=== PATIENT | male | born 1955 | race Caucasian/White ===

== ENCOUNTER → 2019-06-27 14:28 | Outpatient (CLI) | payer OTHER, SELFPAY ==
[2019-06-27 16:50] LABS: Alanine Aminotransferase 72 IU/L (<50); Albumin 4.2 g/dL (3.5-5.0); Albumin Globulin Ratio 1.2 (1.0-2.8); Alkaline Phosphatase 79 U/L (38-126); Aspartate Aminotransferase 93 IU/L (17-59); BUN Creatinine Ratio 18.6 (6-22); Bilirubin Total 0.5 mg/dL (0.2-1.3); Blood Urea Nitrogen 13 mg/dL (9-20); Calcium 9.4 mg/dL (8.4-10.2); Carbon Dioxide 26 mmol/L (22-32); Chloride 102 mmol/L (98-107); Cholesterol 183 mg/dL (140-199); Estimated Glomerular Filt Rate > 60.0 mL/min (>60); Globulin 3.4 g/dL (1.7-4.1); Glucose 104 mg/dL (80-110); HDL Cholesterol 44 mg/dL (40-60); HEMOLYSIS < 15 (0-50); LDL Cholesterol Calculated 110 mg/dL (<100); Potassium 4.4 mmol/L (3.4-5.1); Sodium 137 mmol/L (137-145); Total Protein 7.6 g/dL (6.3-8.2); Triglycerides 145 mg/dL (35-150); Uric Acid 5.6 mg/dL (3.5-8.5)
[2019-06-27 17:21] LABS: Prostate Specific Antigen Scrn 0.353 ng/mL (0.1-4.0)
== END ==
PROVIDERS: Family Provider Internal Medicine; PCP Internal Medicine; Referring Provider Internal Medicine; Visit Provider Internal Medicine
DX: Z12.5 Encounter for screening for malignant neoplasm of prostate (principal); E78.5 Hyperlipidemia, unspecified; K57.90 Diverticulosis of intestine, part unspecified, without perforation or abscess without bleeding; Z13.1 Encounter for screening for diabetes mellitus; Z13.6 Encounter for screening for cardiovascular disorders; Z87.39 Personal history of other diseases of the musculoskeletal system and connective tissue
CPT/HCPCS: 36415; 80053; 80061; 84550; G0103

== ENCOUNTER → 2019-07-03 12:08 | Outpatient (CLI) | payer OTHER, MEDICAID, SELFPAY ==
--- NOTE | 2019-07-03 12:09 | DI.US.S_ITS ---
PROCEDURE: US ABDOMEN COMPLETE INDICATIONS: TRANSAMINITIS, CHRONIC HEPATITIS TECHNIQUE: Real-time scanning was performed of the abdominal and retroperitoneal organs, with image documentation. COMPARISON: None. FINDINGS: Liver: Liver is normal in size and homogeneous in echotexture, diffusely hyperechoic to the degree that accurate assessment for interval biliary distention or masses are limited. Gallbladder: The gallbladder appears normal. Biliary ducts: Not well-seen due to overlying bowel gas and the prominently hyperechoic overlying liver parenchyma. Pancreas: Visualized portions of the pancreas are sonographically normal. Spleen: Spleen is normal in size and homogeneous in echotexture. Kidneys: Kidneys are normal in size and echotexture. Right kidney measures 11.2 cm long; left kidney measures 11.7 cm long. No hydronephrosis or nephrolithiasis. No solid masses. 1.8 cm simple appearing right renal cortical cyst incidentally noted. Aorta: Visualized aorta is normal in caliber at less than 3 cm. Iliacs: Proximal common iliac arteries are normal in caliber at less than 2.5 cm. IVC: Intrahepatic inferior vena cava is patent. Miscellaneous: No free abdominal fluid. IMPRESSION: Prominently hyperechoic liver echotexture reduces quality of visualization behind and within the liver itself. Bile ducts and pancreas as result were not well-visualized. Ultrasound imaging is ineffective for accurate detection of early hepatic neoplasm and followup by CT scanning may be warranted if clinically indicated. Dictated by: Aime Taveras M.D. on 07/03/2019 at 13:52 Approved by: Aime Taveras M.D. on 07/03/2019 at 13:54
== END ==
PROVIDERS: Family Provider Internal Medicine; PCP Internal Medicine; Referring Provider Internal Medicine; Visit Provider Internal Medicine
DX: R74.0 Nonspecific elevation of levels of transaminase and lactic acid dehydrogenase [LDH] (principal); K73.9 Chronic hepatitis, unspecified; N28.1 Cyst of kidney, acquired
CPT/HCPCS: 76700

== ENCOUNTER → 2019-07-07 12:19 | Outpatient (CLI) | payer OTHER, MEDICAID, SELFPAY ==
[2019-07-07 13:22] LABS: HEMOLYSIS < 15 (0-50); Iron 119 ug/dL (49-181)
[2019-07-07 13:26] LABS: Alanine Aminotransferase 77 IU/L (<50); Albumin 4.1 g/dL (3.5-5.0); Albumin Globulin Ratio 1.2 (1.0-2.8); Alkaline Phosphatase 68 U/L (38-126); Aspartate Aminotransferase 93 IU/L (17-59); Bilirubin Total 0.5 mg/dL (0.2-1.3); Bilirubin Unconjugated 0.4 mg/dL (0.0-1.1); Globulin 3.3 g/dL (1.7-4.1); HEMOLYSIS < 15 (0-50); Total Protein 7.4 g/dL (6.3-8.2)
[2019-07-07 13:32] LABS: Percent Iron Saturation 31 % (20-50); Total Iron Binding Capacity 389 ug/dL (261-462); Transferrin 301 mg/dL (206-381)
[2019-07-07 13:53] LABS: TSH w/ Reflex to FT4 2.14 uIU/mL (0.47-4.68)
[2019-07-07 14:04] LABS: Hepatitis B Surface Antigen NEGATIVE s/c (NEGATIVE)
[2019-07-07 14:11] LABS: Hep C Virus Ab w/Reflex Quant NEGATIVE s/c (NEGATIVE)
[2019-07-08 05:37] LABS: Ceruloplasmin 25.1 mg/dL (16.0-31.0)
[2019-07-11 10:36] LABS: ANA Screen, IFA Negative (.)
[2019-07-12 09:09] LABS: Smooth Muscle Antibody 21 Units (0-19)
[2019-07-13 03:36] LABS: Deamidated Gliadin IgA 25 units (0-19); Deamidated Gliadin IgG 5 units (0-19); IGA 499 mg/dL (61-437); t-Transglutaminase IgA <2 U/mL (0-3)
== END ==
PROVIDERS: Family Provider Internal Medicine; PCP Internal Medicine; Referring Provider Internal Medicine; Visit Provider Internal Medicine
DX: K73.9 Chronic hepatitis, unspecified (principal); R74.0 Nonspecific elevation of levels of transaminase and lactic acid dehydrogenase [LDH]
CPT/HCPCS: 36415; 80076; 82390; 82784; 83516; 83540; 83550; 84443; 86038; 86803; 87340

== ENCOUNTER → 2021-12-18 11:59 | Outpatient (CLI) | payer MEDICARE, OTHER, SELFPAY ==
[2021-12-18 12:53] LABS: HEMOLYSIS < 15 (0-50)
[2021-12-18 13:01] LABS: Alanine Aminotransferase 54 IU/L (<50); Albumin 4.1 g/dL (3.5-5.0); Alkaline Phosphatase 82 U/L (38-126); Aspartate Aminotransferase 49 IU/L (17-59); BUN Creatinine Ratio 19.2 (6-22); Bilirubin Total 0.7 mg/dL (0.2-1.3); Blood Urea Nitrogen 14 mg/dL (9-20); Calcium 8.7 mg/dL (8.4-10.2); Carbon Dioxide 27 mmol/L (22-32); Chloride 99 mmol/L (98-107); Cholesterol 209 mg/dL (140-199); Estimated Glomerular Filt Rate > 60 mL/min (>60); Globulin 4.1 g/dL (1.7-4.1); Glucose 145 mg/dL (80-110); HDL Cholesterol 36 mg/dL (40-60); LDL Cholesterol Calculated 142 mg/dL (<100); Potassium 4.3 mmol/L (3.4-5.1); Sodium 137 mmol/L (137-145); Total Protein 8.2 g/dL (6.3-8.2); Triglycerides 154 mg/dL (35-150); Uric Acid 6.6 mg/dL (3.5-8.5)
== END ==
PROVIDERS: Family Provider Internal Medicine; PCP Internal Medicine; Referring Provider Internal Medicine; Visit Provider Internal Medicine
DX: E78.5 Hyperlipidemia, unspecified (principal); Z12.5 Encounter for screening for malignant neoplasm of prostate; K76.0 Fatty (change of) liver, not elsewhere classified; Z87.39 Personal history of other diseases of the musculoskeletal system and connective tissue
CPT/HCPCS: 36415; 80053; 80061; 84550; G0103

== ENCOUNTER 2022-06-23 07:41 | Day surgery (SDC) | payer MEDICARE, OTHER, MEDICAID, SELFPAY ==
[2022-06-23] MEDS: LACTATED RINGERS 1,000 ML 200 ML IV (07:57)
[2022-06-23 08:08] VITALS: BP 156/85; PULSE 79; RESP 20; TEMP 36.3; O2SAT 95; BMI 39.9
--- NOTE | 2022-06-23 09:50 | PM.HP.1 ---
History of Present Illness History of Present Illness Date Patient Seen: 06/23/22 Time Patient Seen: 09:50 Chief complaint: Colonoscopy Narrative: The patient presents for colorectal screening. Personal history of colonic polyps. Mother had colon cancer.. On further history denies any recent gastrointestinal symptoms. No nausea, vomiting, abdominal pain, loss of appetite, unexplained weight loss, change in bowel habits, or blood per rectum. [facility] Medical History (Updated 01/30/22 @ 11:28 by Davon Coles MD) Colonic adenoma (2011) Diverticular disease (2009) Fatty liver Gout (2005) History of adenomatous polyp of colon History of gout Hyperlipidemia (05/15/11) Impaired glucose tolerance Morbid obesity Plantar warts (1984) Psoriasis (1964) Recurrent sinusitis (2011) Sleep apnea (1994) Surgical History Status post colonoscopy (2011) Family History Brother Cancer Leukemia Father Stroke CAD (coronary artery disease) Grandfather Cancer Grandmother Cancer Mother Cervical cancer Cancer Sister Heart failure Epilepsy Social History marital status: unmarried,single number of children: 0 household members: none lives independently: Yes caregiver/support person: No housing: house pets and animals: Yes education level: college ([employer] occupational status: other (Retired.) Previous occupational history: [employer] in [employer]. Was bought out name changed. leisure activities: exercise (Walking, Hiking.) and other (Boating) Smoking Status: Former smoker Tobacco: How many years used: 18 Smokeless tobacco user: other (Cigarettes) quit status: quit date established (1992) second hand exposure: No alcohol intake: current substance use type: does not use Meds Home Medications and Allergies Home Medications Medication Instructions Recorded Confirmed Type allopurinol 300 mg tablet 300 mg PO QDAY PRN Pain (Scale 06/23/22 06/23/22 History Score 4-6) Allergies Allergy/AdvReac Type Severity Reaction Status Date / Time codeine [CODEINE] Allergy Mild Verified 06/23/22 08:24 Exam Vital Signs (past 8 hours): - 06/23/22 08:08 Temperature 97.3 F L Pulse Rate 79 Respiratory Rate 20 Blood Pressure 156/85 H Pulse Oximetry 95 Oxygen Delivery Method Room Air Oxygen Delivery Method Room Air Narrative Exam Narrative: General adult man alert oriented no acute distress Assessment & Plan Assessment & Plan narrative: The patient requires colorectal screening and colonoscopy is recommended. Technical details were discussed. Risks, benefits, alternatives explained. Risks including but not limited to myocardial infarction, aspiration, bleeding, pain, missed lesion, incomplete examination, need for further radiographic studies, colonic perforation, and need for major abdominal surgery were discussed. All questions were answered to their satisfaction, and they are in agreement with this plan.
[2022-06-23 10:31] VITALS: BP 141/81; PULSE 78; RESP 19; TEMP 36.9; O2SAT 94
[2022-06-23 10:36] VITALS: BP 148/74; PULSE 75; RESP 21; O2SAT 94
--- NOTE | 2022-06-23 10:36 | PM.OP.COLON ---
Operative Date/Time/Diagnoses Date of procedure: 06/23/22 Time of procedure: 10:36 Pre-op diagnosis: FamHx of colon cancer Post-op diagnosis: same Procedure & Clinicians Study performed: Colonoscopy Same procedure as scheduled: Yes Indications: Family history of colon cancer, colorectal screening Surgeon: Von Moffett Procedure Notes Procedure in detail: The history and physical was performed/updated and the patient is ASA class is 2. The procedure was discussed in detail with the patient. Potential risks complications including infection, bleeding, missed diagnosis, perforation, need for surgery, and were explained. Their questions were answered and informed consent was obtained. Patient was brought to the procedure room and placed standard monitoring equipment. The patient's vital signs were monitored continuously throughout the entire procedure. Prior to starting time-out was performed. The patient was placed in the left lateral recumbent position. Procedural sedation was administered by anesthesia. Examination began with a thorough inspection of the perianal area there was no evidence of fissures, fistulae, external hemorrhoids or cutaneous malignancy. The colonoscopy scope was then placed into the anal canal and was advanced to the cecum, which was identified by the ileocecal valve, the appendiceal orifice and the confluence of the taenia. The scope was then slowly withdrawn examining colon thoroughly in all directions, irrigating it of any residual stool. No masses polyps or inflammation. Significant diverticulosis within the sigmoid and descending colon. The patient tolerated the procedure well. They will be discharged once criteria are met. The prep was of fair quality. The withdrawl time was 6 minutes. Specimen(s): none sent Impression: Normal colonoscopy Post-procedure Recommendations: Colonoscopy in 5 years and High fiber diet Disposition: same day surgery
[2022-06-23 10:44] VITALS: BP 136/67; PULSE 74; RESP 19; O2SAT 94
== END 2022-06-23 11:15 | disposition home or self-care (01) ==
PROVIDERS: Family Provider Internal Medicine; PCP Internal Medicine; Referring Provider Surgery; Visit Provider Surgery
PROC: 0DJD8ZZ Inspection of Lower Intestinal Tract, Via Natural or Artificial Opening Endoscopic (ICD-10-PCS; CPT 45378; principal; 2022-06-23 08:45)
DX: Z12.11 Encounter for screening for malignant neoplasm of colon (principal); Z80.0 Family history of malignant neoplasm of digestive organs; K57.30 Diverticulosis of large intestine without perforation or abscess without bleeding
CPT/HCPCS: G0105; G0121; J2704

== ENCOUNTER → 2022-11-25 11:38 | Outpatient (CLI) | payer MEDICARE, OTHER, SELFPAY ==
[2022-11-25 13:05] LABS: Alanine Aminotransferase 54 IU/L (<50); Albumin 4.1 g/dL (3.5-5.0); Albumin Globulin Ratio 1.1 (1.0-2.8); Alkaline Phosphatase 70 U/L (38-126); Aspartate Aminotransferase 61 IU/L (17-59); BUN Creatinine Ratio 20.3 (6-22); Bilirubin Total 0.5 mg/dL (0.2-1.3); Blood Urea Nitrogen 15 mg/dL (9-20); Calcium 9.7 mg/dL (8.4-10.2); Carbon Dioxide 27 mmol/L (22-32); Chloride 101 mmol/L (98-107); Cholesterol 195 mg/dL (140-199); Estimated Glomerular Filt Rate > 60 mL/min (>60); Globulin 3.7 g/dL (1.7-4.1); Glucose 117 mg/dL (80-110); HDL Cholesterol 36 mg/dL (40-60); HEMOLYSIS < 15 (0-50); LDL Cholesterol Calculated 126 mg/dL (<100); Potassium 4.2 mmol/L (3.4-5.1); Sodium 138 mmol/L (137-145); Total Protein 7.8 g/dL (6.3-8.2); Triglycerides 164 mg/dL (35-150); Uric Acid 8.8 mg/dL (3.5-8.5)
== END ==
PROVIDERS: Family Provider Internal Medicine; PCP Internal Medicine; Referring Provider Internal Medicine; Visit Provider Internal Medicine
DX: E66.01 Morbid (severe) obesity due to excess calories (principal); R73.02 Impaired glucose tolerance (oral); E78.5 Hyperlipidemia, unspecified
CPT/HCPCS: 36415; 80053; 80061; 84550

== ENCOUNTER → 2024-09-11 11:50 | Outpatient (CLI) | payer MEDICARE, OTHER, SELFPAY ==
[2024-09-11 12:43] LABS: Alanine Aminotransferase 67 IU/L (<50); Albumin 4.2 g/dL (3.5-5.0); Albumin Globulin Ratio 1.1 (1.0-2.8); Alkaline Phosphatase 72 U/L (38-126); Blood Urea Nitrogen 16 mg/dL (9-20); Calcium 9.2 mg/dL (8.4-10.2); Carbon Dioxide 29 mmol/L (22-32); Chloride 102 mmol/L (98-107); Cholesterol 245 mg/dL (140-199); Estimated Glomerular Filt Rate > 60 mL/min (>60); Globulin 4.0 g/dL (1.7-4.1); Glucose 122 mg/dL (70-99); HDL Cholesterol 42 mg/dL (40-60); HEMOLYSIS < 15 (0-50); Potassium 4.9 mmol/L (3.4-5.1); Sodium 137 mmol/L (137-145); Total Protein 8.2 g/dL (6.3-8.2); Triglycerides 161 mg/dL (35-150); Uric Acid 9.3 mg/dL (3.5-8.5)
== END ==
PROVIDERS: Family Provider Internal Medicine; PCP Internal Medicine; Referring Provider Internal Medicine; Visit Provider Internal Medicine
DX: Z12.5 Encounter for screening for malignant neoplasm of prostate (principal); E78.2 Mixed hyperlipidemia; R73.02 Impaired glucose tolerance (oral); K76.0 Fatty (change of) liver, not elsewhere classified; Z87.39 Personal history of other diseases of the musculoskeletal system and connective tissue
CPT/HCPCS: 36415; 80053; 80061; 84550; G0103